=== PATIENT | male | born 1945 | race Two or more races ===

== ENCOUNTER 2018-11-18 15:22 | Outpatient (CLI) | payer OTHER | END 2018-11-18 15:32 | disposition home or self-care (01) | LOC: RAD 501 15:22 | DX: M16.0 Bilateral primary osteoarthritis of hip (principal); M51.27 Other intervertebral disc displacement, lumbosacral region ==

== ENCOUNTER → 2019-12-26 | Outpatient (CLI) | payer OTHER | END | disposition home or self-care (01) | LOC: NUCLEAR 13:30 | DX: M81.0 Age-related osteoporosis without current pathological fracture (principal) ==

== ENCOUNTER 2020-06-13 11:46 | Outpatient (CLI) | payer OTHER | END 2020-06-13 22:22 | disposition home or self-care (01) | LOC: PPH VACUNA 11:46 | PROVIDERS: ATTEND Emergency Medicine Pediatric Emergency Medicine | DX: Z23 Encounter for immunization (principal) ==

== ENCOUNTER 2021-01-28 14:36 | Outpatient (CLI) | payer OTHER | END 2021-01-28 14:41 | disposition home or self-care (01) | LOC: SONOGRAMA 14:36 → MAMO-SONO 14:45 | PROVIDERS: ATTEND Internal Medicine Geriatric Medicine | DX: M75.82 Other shoulder lesions, left shoulder (principal) ==

== ENCOUNTER 2021-02-04 07:41 | Outpatient (CLI) | payer OTHER | END 2021-02-04 07:42 | disposition home or self-care (01) | LOC: SONOGRAMA 07:41 | PROVIDERS: ATTEND Internal Medicine Geriatric Medicine | DX: R10.84 Generalized abdominal pain (principal); K57.90 Diverticulosis of intestine, part unspecified, without perforation or abscess without bleeding; N40.1 Benign prostatic hyperplasia with lower urinary tract symptoms; K80.00 Calculus of gallbladder with acute cholecystitis without obstruction ==

== ENCOUNTER 2021-03-12 08:00 | Outpatient (CLI) | payer OTHER | END 2021-03-12 08:30 | disposition home or self-care (01) | LOC: PPH VACUNA 08:00 | PROVIDERS: ATTEND Emergency Medicine Pediatric Emergency Medicine | DX: Z23 Encounter for immunization (principal) ==

== ENCOUNTER 2021-10-10 08:00 | Outpatient (CLI) | payer OTHER | END 2021-10-10 08:30 | disposition home or self-care (01) | LOC: PPH VACUNA 08:00 | PROVIDERS: ATTEND Emergency Medicine Pediatric Emergency Medicine | DX: Z23 Encounter for immunization (principal) ==

== ENCOUNTER 2022-08-18 16:42 | Outpatient (CLI) | payer OTHER | END 2022-08-18 16:48 | disposition home or self-care (01) | LOC: RAD 16:42 | PROVIDERS: ATTEND Internal Medicine Geriatric Medicine | DX: S22.41XA Multiple fractures of ribs, right side, initial encounter for closed fracture (principal); S22.32XA Fracture of one rib, left side, initial encounter for closed fracture ==

== ENCOUNTER → 2022-12-22 | Outpatient (CLI) | payer OTHER | END | disposition home or self-care (01) | LOC: NUCLEAR 13:23 | PROVIDERS: ATTEND Internal Medicine Geriatric Medicine | DX: M81.0 Age-related osteoporosis without current pathological fracture (principal) ==

== ENCOUNTER 2024-05-09 13:34 | Outpatient (CLI) | payer OTHER | END 2024-05-09 13:48 | disposition home or self-care (01) | LOC: SONOGRAMA 13:34 | PROVIDERS: ATTEND Physical Medicine & Rehabilitation | DX: M25.511 Pain in right shoulder (principal) ==

== ENCOUNTER 2024-07-18 11:59 | Outpatient (CLI) | payer OTHER | END 2024-07-18 12:01 | disposition home or self-care (01) | LOC: RAD 11:59 | PROVIDERS: ATTEND Ophthalmology | DX: Z01.811 Encounter for preprocedural respiratory examination (principal) ==

== ENCOUNTER 2025-03-13 14:09 | Outpatient (CLI) | payer OTHER | END 2025-03-13 14:18 | disposition home or self-care (01) | LOC: RAD 14:09 | DX: M99.01 Segmental and somatic dysfunction of cervical region (principal); M99.02 Segmental and somatic dysfunction of thoracic region; M99.03 Segmental and somatic dysfunction of lumbar region; M99.04 Segmental and somatic dysfunction of sacral region; M99.05 Segmental and somatic dysfunction of pelvic region ==

== ENCOUNTER 2025-06-13 09:27 | Outpatient (CLI) | payer OTHER | END 2025-06-13 09:28 | disposition home or self-care (01) | LOC: NUCLEAR 09:27 | PROVIDERS: ATTEND Internal Medicine Geriatric Medicine | DX: M81.0 Age-related osteoporosis without current pathological fracture (principal) ==